=== PATIENT | male | born 1960 | race Two or more races ===

== ENCOUNTER 2016-12-23 14:02 | Emergency (ER) | payer OTHER, MEDICARE ==
[2016-12-23] MEDS ORDERED: MECLIZINE HCL 25 MG TABLET PO ONE ×4 (14:06→22:44)
[2016-12-23] MEDS ORDERED: NORMAL SALINE 1000 ML 1,000 ML IV ONE ×2 (14:07)
--- NOTE | 2016-12-23 14:11 | ER Document Report ---
ED Medical Screen (RME) - General Stated Complaint: NAUSEA VOMITING - HPI Patient complains to provider of: Dizziness for 2-3 days nausea vomiting. Physical Exam - Vital signs Vitals: Temp Pulse Resp BP Pulse Ox 97.4 F 69 16 112/56 L 98 12/23/16 14:07 12/23/16 14:07 12/23/16 14:07 12/23/16 14:07 12/23/16 14:07 Course - Vital Signs Vital signs: Temp Pulse Resp BP Pulse Ox 97.4 F 69 16 112/56 L 98 12/23/16 14:07 12/23/16 14:07 12/23/16 14:07 12/23/16 14:07 12/23/16 14:07
[2016-12-23 14:56] LABS: ABSOLUTE BASOPHILS # (AUTO) 0.1 10^3/uL (0.0-0.2); ABSOLUTE LYMPHOCYTES (AUTO) 1.2 10^3/uL (0.5-4.7); ABSOLUTE MONOCYTES (AUTO) 0.6 10^3/uL (0.1-1.4); ABSOLUTE NEUT (AUTO) 8.2 10^3/uL (1.7-8.2); BASOPHILS % (AUTO) 0.6 % (0-2); EOSINOPHILS % (AUTO) 0.5 % (0-6); HEMATOCRIT 47.2 % (37.9-51.0); HEMOGLOBIN 16.4 g/dL (13.5-17.0); LYMPHOCYTES % (AUTO) 11.8 % (13-45); MEAN CORPUSCULAR HEMOGLOBIN 31.3 pg (27.0-33.4); MEAN CORPUSCULAR HGB CONC 34.8 g/dL (32.0-36.0); MEAN CORPUSCULAR VOLUME 90 fl (80-97); MONOCYTES % (AUTO) 5.9 % (3-13); RED BLOOD COUNT 5.26 10^6/uL (4.35-5.55); RED CELL DISTRIBUTION WIDTH 13.2 % (11.5-14.0); SEGMENTED NEUTROPHILS % (AUTO) 81.2 % (42-78); WHITE BLOOD COUNT 10.1 10^3/uL (4.0-10.5)
[2016-12-23 15:16] LABS: ALANINE AMINOTRANSFERASE 46 U/L (21-72); ALKALINE PHOSPHATASE 66 U/L (38-126); ANION GAP 10 (5-19); ASPARTATE AMINO TRANSFERASE 41 U/L (17-59); BILIRUBIN,DIRECT 0.3 mg/dL (0.0-0.4); BLOOD UREA NITROGEN 7 mg/dL (7-20); CALCIUM 9.2 mg/dL (8.4-10.2); CARBON DIOXIDE 25 mmol/L (22-30); CHLORIDE 103 mmol/L (98-107); CREATINE KINASE 46 U/L (55-170); CREATININE RESULT 0.84 mg/dL (0.52-1.25); GLUCOSE 233 mg/dL (75-110); LIPASE 130.3 U/L (23-300); POTASSIUM 3.8 mmol/L (3.6-5.0); SODIUM 137.6 mmol/L (137-145); TOTAL PROTEIN 6.9 g/dL (6.3-8.2)
[2016-12-23 15:18] LABS: ALCOHOL < 10 mg/dL (NONE DETECTED)
--- NOTE | 2016-12-23 15:58 | ER Document Report ---
ED Dizziness/Weakness - General Mode of Arrival: Ambulatory Information source: Patient TRAVEL OUTSIDE OF THE [place] IN LAST 30 DAYS: No <LELO CLIFTON - Last Filed: 12/23/16 17:27> <RADHA SINGER - Last Filed: 12/23/16 23:59> - General Chief Complaint: Dizziness Stated Complaint: NAUSEA VOMITING Time Seen by Provider: 12/23/16 14:11 Notes: Patient is a 56-year-old male that presents to the emergency department today with complaints of a dizzy sensation intermittently for the last week. Patient describes this as a "room spinning" feeling. Patient states he has had associated vomiting and diaphoresis with this dizziness. Patient states he has also fallen while using the bathroom secondary to the dizziness. Patient states he has noticed that he was having right ear pain with swelling and nasal congestion during these episodes as well. Patient complains of a slight headache now. Patient denies any neurological deficits. (LELO CLIFTON) Past Medical History - General Information source: Patient - Social History Smoking Status: Never Smoker Cigarette use (# per day): No Frequency of alcohol use: None Drug Abuse: None Lives with: Family Family History: Reviewed & Not Pertinent Patient has suicidal ideation: Yes Patient has homicidal ideation: Yes Past Surgical History: Reports: Other - left shoulder sx, right arm sx <LELO CLIFTON - Last Filed: 12/23/16 17:27> Review of Systems - Review of Systems Constitutional: See HPI, Diaphoresis EENT: See HPI, Ear pain - swelling, Nose congestion Cardiovascular: See HPI, Dizziness Respiratory: No symptoms reported Gastrointestinal: See HPI, Vomiting Genitourinary: No symptoms reported Male Genitourinary: No symptoms reported Musculoskeletal: No symptoms reported Skin: No symptoms reported Hematologic/Lymphatic: No symptoms reported Neurological/Psychological: See HPI, Headaches -: Yes All other systems reviewed and negative <LELO CLIFTON - Last Filed: 12/23/16 17:27> Physical Exam <LELO CLIFTON - Last Filed: 12/23/16 17:27> <RADHA SINGER - Last Filed: 12/23/16 23:59> - Vital signs Vitals: Pulse Resp BP 61 14 131/74 H 12/23/16 14:06 12/23/16 14:06 12/23/16 14:06 - Notes Notes: Physical Exam: General: Alert, appears well. HEENT: Normocephalic. Atraumatic. PERRL. Extraocular movements intact. Oropharynx clear. Left TM is clear, cerumen in right external auditory canal, Right TM is bulging without redness. Neck: Supple. Non-tender. Respiratory: No respiratory distress. Clear and equal breath sounds bilaterally. Cardiovascular: Regular rate and rhythm. Abdominal: Obese. Non-tender. No distension. Normal Bowel Sounds. Back: Non-tender. No deformity or step off. Extremities: Moves all four extremities. Upper extremities: Normal inspection. Normal ROM. Lower extremities: Normal inspection. No edema. Normal ROM. Neurological: Normal cognition. AAOx4. Normal speech. Psychological: Normal affect. Normal Mood. Skin: Warm. Dry. Normal color. (LELO CLIFTON) Course - Laboratory Result Diagrams: 12/23/16 14:50 12/23/16 14:50 <LELO CLIFTON - Last Filed: 12/23/16 17:27> - Laboratory Result Diagrams: 12/23/16 14:50 12/23/16 14:50 <RADHA SINGER - Last Filed: 12/23/16 23:59> - Re-evaluation Re-evalutation: 12/23/16 18:39 Patient with persistent room spinning sensation, nausea vomiting. 12/23/16 21:42 No acute findings on head CT. Patient has been medicated with nausea and meclizine at the same time and has vomited. Will try nausea medication and Valium IV. 12/23/16 23:58 Patient has been given nausea medicine, Valium, meclizine. Rhonda-Hallpike maneuver was also performed. Patient no longer has symptoms of vertigo. He is able to ambulate without difficulty. Troponin negative 2. No acute findings on imaging. Stable for discharge. Follow-up with PMD. Meclizine prescription given. Patient agrees with plan. Grateful for care. (RADHA SINGER) - Vital Signs Vital signs: Temp Pulse Resp BP Pulse Ox 97.6 F 61 18 122/84 97 12/23/16 14:10 12/23/16 14:30 12/23/16 22:15 12/23/16 22:01 12/23/16 22:15 - Laboratory Laboratory results interpreted by me: 12/23/16 12/23/16 12/23/16 14:50 14:50 15:40 Plt Count 138 L Seg Neutrophils % 81.2 H Lymphocytes % 11.8 L Glucose 233 H Creatine Kinase 46 L Urine Protein 100 H Urine Glucose (UA) >=500 H Urine Ketones TRACE H Discharge <LELO CLIFTON - Last Filed: 12/23/16 17:27> <RADHA SINGER - Last Filed: 12/23/16 23:59> - Discharge Clinical Impression: Vertigo Condition: Stable Disposition: HOME, SELF-CARE Instructions: Meclizine ([facility]), Vertigo ([facility]), Antinausea Medication ([facility]) Prescriptions: Meclizine HCl [Antivert 25 mg Tablet] 25 mg PO TID PRN #60 tablet PRN Reason: Forms: Return to Work Scribe Attestation: 12/23/16 23:59 I personally performed the services described in the documentation, reviewed and edited the documentation which was dictated to the scribe in my presence, and it accurately records my words and actions. (RADHA SINGER) Scribe Documentation - Scribe Written by Alyson:: Alyson Celeste, 12/23/2016 1732 acting as scribe for :: Lyndsey <LELO CLIFTON - Last Filed: 12/23/16 17:27>
[2016-12-23 16:36] LABS: URINE BARBITURATES SCREEN NEGATIVE; URINE METHADONE SCREEN NEGATIVE; URINE OPIATES LOW NEGATIVE; URINE PHENCYCLIDINE SCREEN NEGATIVE
--- NOTE | 2016-12-23 16:39 | RADIOLOGY REPORT (SQ) ---
EXAM DESCRIPTION: CT HEAD WITHOUT COMPLETED DATE/TIME: 12/23/2016 4:30 pm REASON FOR STUDY: vertigo COMPARISON: None. TECHNIQUE: Axial images acquired through the brain without intravenous contrast. Images reviewed wi th bone, brain and subdural windows. Images stored on PACS. All CT scanners at this facility use dose modulation, iterative reconstruction, and/or weight based d osing when appropriate to reduce radiation dose to as low as reasonably achievable (ALARA). [facility]: Dose Right [facility]: CareDose [facility]: Dose Right [facility]: Teradose 4D [facility]: Agistics RADIATION DOSE: 64 mGy. LIMITATIONS: Mild motion artifact FINDINGS: VENTRICLES: Normal size and contour. CEREBRUM: No masses. No hemorrhage. No midline shift. Normal roth/white matter differentiation. N o evidence for acute infarction. CEREBELLUM: No masses. No hemorrhage. No alteration of density. No evidence for acute infarction. EXTRAAXIAL SPACES: No fluid collections. No masses. ORBITS AND GLOBE: No intra- or extraconal masses. Normal contour of globe without masses. CALVARIUM: No fracture. PARANASAL SINUSES: No fluid or mucosal thickening. SOFT TISSUES: No mass or hematoma. OTHER: No other significant finding. IMPRESSION: NORMAL BRAIN CT WITHOUT CONTRAST. TECHNICAL DOCUMENTATION: JOB ID: [id number] Quality ID # [id number]: Final reports with documentation of one or more dose reduction techniques (e.g., Au tomated exposure control, adjustment of the mA and/or kV according to patient size, use of iterative reconstruction technique) 2010 [employer]- All Rights Reserved
[2016-12-23] MEDS ORDERED: ONDANSETRON HCL INJ/PF 4 MG/2 ML SDV IV ONE (16:57)
[2016-12-23 19:00] LABS: APPEARANCE,URINE CLEAR; BILIRUBIN,URINE NEGATIVE (NEGATIVE); GLUCOSE, URINE >=500 mg/dL (NEGATIVE); KETONES,URINE TRACE mg/dL (NEGATIVE); LEUKOCYTE ESTERASE,URINE NEGATIVE (NEGATIVE); NITRITE,URINE NEGATIVE (NEGATIVE); PROTEIN,URINE 100 mg/dL (NEGATIVE); URINE SPECIFIC GRAVITY 1.017; UROBILINOGEN,URINE NEGATIVE mg/dL (<2.0)
[2016-12-23] MEDS ORDERED: METOCLOPRAMIDE HCL INJ/PF 10 MG/2 ML SDV IV ONE (19:17)
[2016-12-23] MEDS ORDERED: DIAZEPAM INJ 10 MG/2 ML DISP.SYRIN IV ONE (19:17)
--- NOTE | 2016-12-23 19:50 | EKG REPORT ---
SEVERITY:- ABNORMAL ECG - SINUS RHYTHM NONSPECIFIC T ABNORMALITIES, INFERIOR and LATERAL LEADS : Confirmed by: Juan Carlos Johnson 23-Dec-2016 19:49:58
[2016-12-23] MEDS ORDERED: DIPHENHYDRAMINE HCL 50 MG/ML VIAL IV ONE (21:07)
[2016-12-23 22:23] VITALS: BP 122/84
[2016-12-23] MEDS ORDERED: ONDANSETRON ODT 4 MG TAB (6 TAB/DSPK) PO PRN (22:45)
== END 2016-12-23 22:48 | disposition home or self-care (01) ==
LOC: EDBD 14:02 → ER 14:02
DX: R42 Dizziness and giddiness (principal); R11.2 Nausea with vomiting, unspecified; R61 Generalized hyperhidrosis; H61.21 Impacted cerumen, right ear; H92.01 Otalgia, right ear; R09.81 Nasal congestion; R51 Headache
CPT/HCPCS: 93005; 99284; 96361; 96374; 36415; 80307 ×2; 82550; 83690; 85025; 80053; 81001; 84484; 70450; 93010; J3360; J2765; J2405; J7030

== ENCOUNTER → 2018-07-28 | Outpatient (CLI) | payer OTHER, MEDICARE ==
--- NOTE | 2018-07-28 12:46 | RADIOLOGY REPORT (SQ) ---
EXAM DESCRIPTION: CHEST PA/LATERAL COMPLETED DATE/TIME: 07/28/2018 12:35 pm REASON FOR STUDY: COUGH COMPARISON: None. EXAM PARAMETERS: NUMBER OF VIEWS: two views TECHNIQUE: Digital Frontal and Lateral radiographic views of the chest acquired. RADIATION DOSE: NA LIMITATIONS: none FINDINGS: LUNGS AND PLEURA: No opacities, masses or pneumothorax. No pleural effusion. MEDIASTINUM AND HILAR STRUCTURES: No masses or contour abnormalities. HEART AND VASCULAR STRUCTURES: Heart normal size. No evidence for failure. BONES: No acute findings. HARDWARE: None in the chest. OTHER: No other significant finding. IMPRESSION: NO SIGNIFICANT RADIOGRAPHIC FINDING IN THE CHEST. TECHNICAL DOCUMENTATION: JOB ID: [id number] [employer]- All Rights Reserved Reading location - IP/workstation name: [email or web address]
== END ==
LOC: OD 12:14
PROVIDERS: ATTEND Nurse Practitioner Acute Care
DX: R05 Cough (principal)
CPT/HCPCS: 71046